=== PATIENT | female | born 1975 | race Caucasian/White ===

== ENCOUNTER 2016-10-15 22:48 | Emergency (ER) | payer MEDICARE, OTHER | END 2016-10-16 00:01 | disposition home or self-care (01) | LOC: ER 22:48 | DX: L02.411 Cutaneous abscess of right axilla (principal); F31.9 Bipolar disorder, unspecified; Z79.899 Other long term (current) drug therapy; Z88.8 Allergy status to other drugs, medicaments and biological substances ==

== ENCOUNTER 2017-03-17 22:42 | Observation (INO) | payer MEDICARE, OTHER ==
[~2017-03-17] VITALS: Ht 154.9 cm; Wt 59.0 kg
== END 2017-03-21 14:52 | disposition home or self-care (01) ==
LOC: ER 22:42 → MED 03-18 02:51
PROVIDERS: ADMIT Internal Medicine Cardiovascular Disease
DX: I50.23 Acute on chronic systolic (congestive) heart failure (principal); G89.29 Other chronic pain; F41.9 Anxiety disorder, unspecified; F32.9 Major depressive disorder, single episode, unspecified; N28.9 Disorder of kidney and ureter, unspecified; Z85.72 Personal history of non-Hodgkin lymphomas; Z82.49 Family history of ischemic heart disease and other diseases of the circulatory system; Z88.8 Allergy status to other drugs, medicaments and biological substances; Z79.899 Other long term (current) drug therapy
CPT/HCPCS: 36415; 93306; 96375; 96376; G0378; J1940